=== PATIENT | male | born 1990 | race African-American/Black ===

== ENCOUNTER 2017-04-01 09:32 | Inpatient (IN) | payer BC, OTHER ==
[2017-04-01] MEDS ORDERED: SODIUM CHLORIDE 0.9% 1,000 ML IV STA (10:13)
[2017-04-01] MEDS ORDERED: HYDROmorphone 1 MG/ML 1 ML SYRINGE IVP STA ×2 (10:13→14:01)
[2017-04-01] MEDS ORDERED: RX INFO: IV CONTRAST WAS GIVEN 1 EACH MISC MISCELLANE PRN (10:13)
[2017-04-01] MEDS ORDERED: ONDANSETRON 4 MG/2 ML VIAL IVP STA ×2 (10:13→14:01)
[2017-04-01] MEDS ORDERED: SODIUM CHLORIDE 0.9% 2,000 ML IV STA (10:13)
[2017-04-01] MEDS ORDERED: PANTOPRAZOLE 40 MG/10 ML VIAL IVP STA (10:13)
[2017-04-01] MEDS ORDERED: MAG HYDROX/AL HYDROX/SIMETH 30 ML, HYOSCYAMINE ELIXIR 10 ML, CIMETIDINE HCL 300 MG, LID... PO STA ×4 (10:43)
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
[2017-04-01 11:43] LABS: Basophils % (A) 0 %; CH 29.6; CHCM 34.9; Eosinophils % (A) 0 %; HCT 44.8 % (39.0-53.0); HDW 2.67; HGB 15.2 gm/dL (13.0-17.5); Luc % (Auto) 1; Lymphocytes # (A) 0.9 k/uL (1.0-4.8); Lymphocytes % (A) 6 %; MCH 28.9 pg (25.0-35.0); MCHC 33.9 g/dL (31.0-37.0); MCV 85.2 fL (80.0-100.0); Mean Platelet Volume 8.6; Monocytes # (A) 0.6 k/uL (0-1.0); Monocytes % (A) 4 %; Neutrophils # (A) 13.7 k/uL (1.3-7.7); Neutrophils % (A) 90 %; RBC 5.26 m/uL (4.30-5.90); RDW 12.4 % (11.5-15.5); WBC 15.4 k/uL (3.8-10.6); WBC (Perox) 14.73
[2017-04-01 11:59] LABS: Calcium 9.6 mg/dL (8.4-10.2); Potassium 5.5 mmol/L (3.5-5.1); Total Bilirubin 2.3 mg/dL (0.2-1.3); Total Protein 8.6 g/dL (6.3-8.2)
[2017-04-01] MEDS ORDERED: INSULIN REGULAR 100 UNIT/ML VIAL SQ STA (12:22)
[2017-04-01] MEDS ORDERED: SODIUM CHLORIDE 0.9% 1,000 ML IV ONE (12:22)
[2017-04-01 12:48] LABS: INR 1.1 (<1.1); Partial Thromboplastin Time 23.6 sec (22.0-30.0); Prothrombin Time 10.7 sec (9.0-12.0)
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
[2017-04-01 14:05] LABS: Appearance,Urine Cloudy (Clear); Bilirubin,Urine Negative (Negative); Glucose,Urine (UA) 4+ (Negative); Ketones,Urine 1+ (Negative); Leukocyte Esterase,Urine Negative (Negative); Mucus,Urine Rare /hpf; Nitrite,Urine Negative (Negative); PH, Urine 5.5 (5.0-8.0); Particle Count 1862; Protein,Urine 1+ (Negative); RBC,Urine 14 /hpf (0-5); Specific Gravity,Urine 1.007 (1.001-1.035); Sperm,Urine Many /hpf; Squamous Epithelial Cell,Urine 1 /hpf (0-4); UA Billing (MACRO vs. MICRO) MICRO; Urobilinogen,Urine <2.0 mg/dL (<2.0); WBC,Urine 2 /hpf (0-5)
[2017-04-01 14:18] LABS: Glucose,Whole Blood 477 mg/dL (75-99)
[2017-04-01] MEDS ORDERED: INSULIN REGULAR 100 UNIT in SODIUM CHLORIDE 0.9% 100 ML IV ONE (14:32)
[2017-04-01] MEDS: SODIUM CHLORIDE 0.9% 1,000 ML IV SCH ×2 (15:44→23:50)
[2017-04-01] MEDS: METOCLOPRAMIDE 5 MG/ML 2 ML VIAL IVP PRN (15:46)
[2017-04-01 15:48] LABS: Glucose,Whole Blood 381 mg/dL (75-99)
[2017-04-01 16:26] LABS: Phosphorous 6.3 mg/dL (2.5-4.5); Potassium 4.8 mmol/L (3.5-5.1)
[2017-04-01 16:52] LABS: Glucose,Whole Blood 298 mg/dL (75-99)
[2017-04-01] MEDS ORDERED: D5-0.45% NACL WITH KCL 20MEQ/L 1,000 ML IV SCH (18:00)
[2017-04-01 18:15] LABS: Glucose,Whole Blood 267 mg/dL (75-99)
[2017-04-01 20:16] LABS: Glucose,Whole Blood 102 mg/dL (75-99)
[2017-04-01] MEDS: HYDROmorphone 1 MG/ML 1 ML SYRINGE IVP PRN (20:46)
[2017-04-01] MEDS: ONDANSETRON 4 MG/2 ML VIAL IVP SCH ×2 (20:47→20:48)
[2017-04-01 20:48] LABS: Phosphorous 4.2 mg/dL (2.5-4.5)
[2017-04-01 21:30] LABS: Glucose,Whole Blood 84 mg/dL (75-99)
[2017-04-01 22:46] LABS: Glucose,Whole Blood 221 mg/dL (75-99)
[2017-04-01] MEDS ORDERED: INSULIN GLARGINE 100 UNIT/ML 10 ML VIAL SQ STA (23:36)
[2017-04-01 23:46] LABS: Glucose,Whole Blood 364 mg/dL (75-99)
[2017-04-02] MEDS: ONDANSETRON 4 MG/2 ML VIAL IVP SCH ×7 (00:25→20:53)
[2017-04-02] MEDS: METOCLOPRAMIDE 5 MG/ML 2 ML VIAL IVP PRN ×2 (01:47→08:57)
[2017-04-02 02:21] LABS: Glucose,Whole Blood 379 mg/dL (75-99)
[2017-04-02] MEDS: SODIUM CHLORIDE 0.9% 1,000 ML IV SCH ×6 (03:24→17:36)
[2017-04-02] MEDS: HYDROmorphone 1 MG/ML 1 ML SYRINGE IVP PRN ×2 (05:04→08:57)
[2017-04-02 05:59] LABS: Glucose,Whole Blood 374 mg/dL (75-99)
[2017-04-02] MEDS: INSULIN LISPRO (humaLOG) 300 UNIT/3 ML VIAL SQ SCH ×8 (06:45→20:54)
[2017-04-02 08:11] LABS: Basophils % (A) 0 %; CH 29.4; CHCM 33.1; Eosinophils % (A) 0 %; HCT 40.5 % (39.0-53.0); HDW 2.54; Luc # (Auto) 0.07; Luc % (Auto) 1; Lymphocytes % (A) 7 %; MCH 28.7 pg (25.0-35.0); MCHC 32.2 g/dL (31.0-37.0); Mean Platelet Volume 8.8; Monocytes # (A) 0.6 k/uL (0-1.0); Monocytes % (A) 4 %; Neutrophils # (A) 11.9 k/uL (1.3-7.7); Neutrophils % (A) 88 %; RBC 4.55 m/uL (4.30-5.90); RDW 12.5 % (11.5-15.5); WBC 13.5 k/uL (3.8-10.6)
[2017-04-02 08:29] LABS: Calcium 8.3 mg/dL (8.4-10.2); Potassium 4.2 mmol/L (3.5-5.1); Total Bilirubin 1.6 mg/dL (0.2-1.3); Total Protein 6.4 g/dL (6.3-8.2)
[2017-04-02 08:45] LABS: Glucose,Whole Blood 305 mg/dL (75-99)
[2017-04-02] MEDS: PANTOPRAZOLE 40 MG/10 ML VIAL IVP SCH ×2 (10:20→21:05)
[2017-04-02] MEDS: ACETAMINOPHEN IV (For NPO) 1,000 MG in EMPTY BAG 1 BAG IVPB PRN ×2 (10:20→18:53)
[2017-04-02 11:20] LABS: Glucose,Whole Blood 197 mg/dL (75-99)
[2017-04-02 12:13] VITALS: BMI 20.7
[2017-04-02 12:38] LABS: Hemoglobin A1C 11.3 % (4.2-6.1)
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
--- NOTE | 2017-04-02 16:28 | PN ---
DATE OF SERVICE: 04/02/2017 CHIEF COMPLAINT: Uncontrolled diabetes. HISTORY OF PRESENT ILLNESS: This gentleman is having continuous nausea and vomiting. BUN and creatinine have gone up and they were normal last year. PHYSICAL EXAMINATION: CHEST: Clear. CARDIAC: Normal. ABDOMEN: Soft and nontender. IMPRESSION: 1. Nausea and vomiting. 2. Dehydration. 3. Prerenal azotemia. 4. Uncontrolled diabetes. PLAN: 1. Continue with IV fluids. 2. Anti-emetics. 3. Follow kidney function closely. 4. Increase insulin until sugars are under control.
[2017-04-02 17:44] LABS: Glucose,Whole Blood 266 mg/dL (75-99)
[2017-04-02 20:35] LABS: Glucose,Whole Blood 202 mg/dL (75-99)
[2017-04-02 22:23] LABS: Glucose,Whole Blood 78 mg/dL (75-99)
[2017-04-03] MEDS: SODIUM CHLORIDE 0.9% 1,000 ML IV SCH ×4 (03:11→21:35)
[2017-04-03] MEDS: ONDANSETRON 4 MG/2 ML VIAL IVP SCH ×5 (03:11→18:12)
[2017-04-03 07:46] LABS: Glucose,Whole Blood 298 mg/dL (75-99)
[2017-04-03] MEDS: INSULIN LISPRO (humaLOG) 300 UNIT/3 ML VIAL SQ SCH ×10 (08:04→21:05)
[2017-04-03] MEDS: PANTOPRAZOLE 40 MG/10 ML VIAL IVP SCH ×2 (08:04→21:04)
[2017-04-03 08:34] LABS: ALT 46 U/L (21-72); AST 59 U/L (17-59); Alkaline Phosphatase 72 U/L (38-126); Anion Gap 11 mmol/L; Blood Urea Nitrogen 22 mg/dL (9-20); Calcium 8.4 mg/dL (8.4-10.2); Carbon Dioxide 20 mmol/L (22-30); Chloride 104 mmol/L (98-107); Glucose 315 mg/dL (74-99); Non-African American GFR(MDRD) 52 (>60 ml/min/1.73 sqM); Potassium 5.1 mmol/L (3.5-5.1); Sodium 135 mmol/L (137-145); Total Bilirubin 1.7 mg/dL (0.2-1.3); Total Protein 6.5 g/dL (6.3-8.2)
[2017-04-03] MEDS ORDERED: ACETAMINOPHEN IV (For NPO) 1,000 MG in EMPTY BAG 1 BAG IVPB ONE (09:00)
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
[2017-04-03] MEDS ORDERED: SCOPOLAMINE 1.5MG/72HR PATCH TRANSDERM SCH (09:30)
[2017-04-03 09:43] LABS: Cholesterol 175 mg/dL (<200); HDL Cholesterol 57 mg/dL (40-60); Triglycerides 92 mg/dL (<150)
[2017-04-03 11:29] LABS: Glucose,Whole Blood 159 mg/dL (75-99)
--- NOTE | 2017-04-03 17:28 | PN ---
DATE OF SERVICE: 04/03/2017 CHIEF COMPLAINT: DKA and uncontrolled diabetes. HISTORY OF PRESENT ILLNESS: This gentleman would be doing fairly well and could go home, except that he is having vomiting. He has had no diarrhea, hematemesis, fever, chills, etc. PHYSICAL EXAMINATION: CHEST: Clear. CARDIAC: Normal. He is in sinus rhythm. ABDOMEN: Flat and slightly tender over the epigastrium. Bowel sounds are present. EXTREMITIES: Normal. IMPRESSION: 1. Uncontrolled diabetes with diabetic ketoacidosis. 2. Epigastric pain and vomiting. PLAN: Continue to look for etiology of his pain and vomiting. In the meantime, repeat labs.
[2017-04-03 17:40] LABS: Glucose,Whole Blood 198 mg/dL (75-99)
[2017-04-03] MEDS: ACETAMINOPHEN TAB 500 MG TAB PO PRN (18:17)
[2017-04-03] MEDS: LISINOPRIL 20 MG TAB PO SCH (18:43)
[2017-04-03 21:01] LABS: Glucose,Whole Blood 141 mg/dL (75-99)
[2017-04-04] MEDS: ONDANSETRON 4 MG/2 ML VIAL IVP SCH ×4 (00:17→10:42)
[2017-04-04 01:14] LABS: Glucose,Whole Blood 215 mg/dL (75-99)
[2017-04-04] MEDS: SODIUM CHLORIDE 0.9% 1,000 ML IV SCH ×2 (05:00→10:42)
[2017-04-04 07:08] LABS: Glucose,Whole Blood 277 mg/dL (75-99)
[2017-04-04] MEDS: PANTOPRAZOLE 40 MG/10 ML VIAL IVP SCH (08:10)
[2017-04-04] MEDS: LISINOPRIL 20 MG TAB PO SCH (08:11)
[2017-04-04] MEDS: INSULIN LISPRO (humaLOG) 300 UNIT/3 ML VIAL SQ SCH ×4 (08:11→13:09)
[2017-04-04 08:12] VITALS: BP 188/102; PULSE 81; RESP 18; TEMP 97.6
[2017-04-04 09:09] LABS: ALT 41 U/L (21-72); AST 29 U/L (17-59); Alkaline Phosphatase 75 U/L (38-126); Anion Gap 11 mmol/L; Blood Urea Nitrogen 13 mg/dL (9-20); Calcium 8.6 mg/dL (8.4-10.2); Carbon Dioxide 22 mmol/L (22-30); Chloride 100 mmol/L (98-107); Glucose 246 mg/dL (74-99); Non-African American GFR(MDRD) >60 (>60 ml/min/1.73 sqM); Potassium 4.5 mmol/L (3.5-5.1); Sodium 133 mmol/L (137-145); Total Protein 6.5 g/dL (6.3-8.2)
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
[2017-04-04] MEDS: ACETAMINOPHEN TAB 500 MG TAB PO PRN (11:12)
[2017-04-04 11:25] LABS: Glucose,Whole Blood 259 mg/dL (75-99)
--- NOTE | 2017-04-04 12:09 | PN ---
DATE OF SERVICE: 04/04/2017 CHIEF COMPLAINT: DKA and contusions and abrasions. HISTORY OF PRESENT ILLNESS: This gentleman is doing a little bit better. He is not having abdominal discomfort. He is occasionally throwing up, but this is slowing down. This could be due to a diabetic gastroenteropathy. Blood sugars are improved and he is doing well and he will probably go home today. PHYSICAL EXAM: His chest is clear. Cardiac exam is normal. The abdomen is flat, soft, nontender and no masses or visceromegaly. Bowel sounds present. IMPRESSION: 1. Uncontrolled diabetes mellitus. 2. Multiple contusions and abrasions. 3. Dehydration. 4. Possible diabetic gastroenteropathy. PLAN: Will try to send him home today and will follow him up in the office in a day or two. He will be contacted by the complex career consultant.
--- NOTE | 2017-04-05 16:59 | DS ---
DATE OF ADMISSION: 04/01/2017 DATE OF DISCHARGE: 04/04/2017 CHIEF COMPLAINT: Contusions and abrasions and uncontrolled diabetes. HISTORY OF PRESENT ILLNESS AND PHYSICAL EXAMINATION: The details of this man's history and physical can be found in the initial workup. LABORATORY STUDIES: While he was in hospital he had laboratory studies, details of which can be found in the laboratory section of his chart. COURSE IN THE HOSPITAL: After admission he was placed on bed rest, started on intravenous fluids and insulin drip. His sugars were brought down. He stabilized and was doing well, and then he started to develop epigastric pain and vomiting. Etiology for this was not clear. This slowly did begin to subside, however, and his diet was advanced and sugars were brought under reasonably good control. It was felt that he could go home on April 04, and he will follow up in the office in a few days. FINAL DIAGNOSES: 1. Multiple contusions and abrasions. 2. Uncontrolled type 1 insulin-dependent diabetes mellitus. 3. Abdominal pain and vomiting, possibly due to diabetic enteropathy. OPERATIONS: None. CONSULTATIONS: None. He is improved.
== END 2017-04-04 13:56 | disposition home or self-care (01) | DRG 638 ==
LOC: EC 09:32 → 6SEL 14:36 → 5MS5E 04-02 16:53
PROVIDERS: ADMIT Family Medicine; ATTEND Family Medicine
DX: E10.10 Type 1 diabetes mellitus with ketoacidosis without coma (principal); N17.9 Acute kidney failure, unspecified; E87.5 Hyperkalemia; I10 Essential (primary) hypertension; E86.0 Dehydration; D72.829 Elevated white blood cell count, unspecified; F17.200 Nicotine dependence, unspecified, uncomplicated; G43.909 Migraine, unspecified, not intractable, without status migrainosus; J45.909 Unspecified asthma, uncomplicated; Z79.4 Long term (current) use of insulin; Z88.5 Allergy status to narcotic agent
CPT/HCPCS: 36415; 70450; 72125; 74176; 80051; 80053; 80061; 81001; 82009; 82150; 82565; 82947; 83036; 83605; 83690; 84100; 84520; 85025; 85610; 85730; 86850; 86900; 86901

== ENCOUNTER 2017-05-03 12:07 | Emergency (ER) | payer BC ==
[2017-05-03 12:17] VITALS: BP 113/66; PULSE 102; RESP 20; TEMP 98.4
--- NOTE | 2017-05-03 12:30 | ED ---
Extremity Problem HPI - General Chief complaint: Extremity Problem,Nontraumatic Stated complaint: Bump On Arm Time Seen by Provider: 05/03/17 12:18 Source: patient, RN notes reviewed Mode of arrival: ambulatory Limitations: no limitations - History of Present Illness Initial comments: 26-year-old male presents to the emergency department with chief complaint of bump to the right on right forearm a couple of hours ago. Patient states he did have an IV that arm a few weeks ago. Patient states it is not tender but it was right over her vein so he was concerned. Patient states no history of this history of blood clots no history of blood disorders. Patient states there is no pain. Patient states she was concerned due to his symptoms were thought that he should be evaluated.Patient denies any recent fever, chills, shortness of breath, chest pain, back pain, abdominal pain, nausea vomiting, numbness or tingling, dysuria or hematuria, constipation or diarrhea, headaches or visual changes, or any other current symptoms. - Related Data Previous Rx's Medication Instructions Recorded Atorvastatin Calcium [Lipitor] 20 mg PO DAILY #30 tab 04/04/17 Insulin NPH Hum/Reg Insulin Hm 35 unit SQ BID #1 pen 04/04/17 [humuLIN 70/30 Kwikpen] Insulin NPH/Reg Insulin 70/30 35 unit SQ BID #1 04/04/17 [humuLIN 70/30 VIAL] Lisinopril 40 mg PO DAILY #30 tab 04/04/17 Allergies Allergy/AdvReac Type Severity Reaction Status Date / Time codeine Allergy Swelling Verified 05/03/17 12:17 Review of Systems ROS Statement: Those systems with pertinent positive or pertinent negative responses have been documented in the HPI. ROS Other: All systems not noted in ROS Statement are negative. Past Medical History Past Medical History: Asthma, Diabetes Mellitus, Pneumonia Additional Past Medical History / Comment(s): bronchitis, "constipation- received botox injections to help with that", migraines, concussions History of Any Multi-Drug Resistant Organisms: None Reported Past Surgical History: No Surgical Hx Reported Additional Past Surgical History / Comment(s): tooth extractions Past Anesthesia/Blood Transfusion Reactions: Motion Sickness Additional Past Anesthesia/Blood Transfusion Reaction / Comment(s): mild clausterphobia Past Psychological History: No Psychological Hx Reported Smoking Status: Current every day smoker Past Alcohol Use History: Rare Past Drug Use History: Marijuana - Past Family History Mother Family Medical History: Cancer, Chest Pain / Angina Additional Family Medical History / Comment(s): CERVICAL CANCER Father Family Medical History: Cancer Additional Family Medical History / Comment(s): - LUNG CANCER, WAS HEAVY SMOKER. General Exam - General Exam Comments Initial Comments: General: The patient is awake and alert, in no distress, and does not appear acutely ill. Neck: The neck is supple, there is no tenderness. Cardiovascular: There is a regular rate and rhythm. No murmur, rub or gallop is appreciated. Respiratory: Lungs are clear to auscultation, respirations are non-labored, breath sounds are equal. No wheezes, stridor, rales, or rhonchi. Musculoskeletal: Sensation intact with 2+ pulses. Pressure over the frontal motion of right elbow and right wrist. Patient does appear to have a small nodule-like area over the pain that does appear to be superficial blood clot. Nontender mobile. It is palpable. Neurological: CN II-XII intact, There are no obvious motor or sensory deficits. Coordination appears grossly intact. Speech is normal. Skin: Skin is warm and dry and no rashes or lesions are noted. Psychiatric: Normal mood and affect. Limitations: no limitations Course Vital Signs 05/03/17 12:15 Temperature 98.4 F Pulse Rate 102 H Respiratory 20 Rate Blood Pressure 113/66 O2 Sat by Pulse 100 Oximetry Medical Decision Making - Medical Decision Making 26-year-old male presents for what appears to be superficial blood clot to the right forearm. discussed warm compresses. We discussed follow-up return parameters all patient's questions. We discussed return parameters other concerns. He stated that they understood. in agreement with Plan. He will be discharged. - Radiology Data Radiology results: report reviewed, image reviewed Disposition Clinical Impression: Superficial thrombophlebitis of arm Disposition: HOME SELF-CARE Condition: Stable Instructions: Superficial Thrombophlebitis (ED) Additional Instructions: Please use medication as discussed. Please follow up with family doctor if symptoms have not improved over the next two days. Please return to the emergency room if your symptoms increase or worsen or for any other concerns. Referrals: Jose Mejia MD [Primary Care Provider] - 1-2 days Time of Disposition: 13:18
--- NOTE | 2017-05-03 14:04 | US ---
EXAMINATION TYPE: US extremity nonvasc mass RT DATE OF EXAM: 05/03/2017 COMPARISON: NONE CLINICAL HISTORY: Pain; EC patient with small palpable noted today at anterior right forearm and c/o mild numbness of wrist; stated had IV distal to this same location 3 weeks prior At right forearm palpable is hypoechoic elongated area of superficial vein; size of noncompressible p alpable = 1.7 x 0.5 x 0.3cm, yet, vein compresses superior and inferior to this palpable. IMPRESSION: 1. Nonspecific hypoechoic nodule or mass overlies the palpable abnormality. Appears to be related to a focal segment of superficial venous thrombosis..
== END 2017-05-03 13:23 | disposition home or self-care (01) ==
LOC: EC 12:07
DX: I80.8 Phlebitis and thrombophlebitis of other sites (principal); F17.200 Nicotine dependence, unspecified, uncomplicated; Z88.5 Allergy status to narcotic agent
CPT/HCPCS: 99283

== ENCOUNTER 2018-08-08 06:37 | Emergency (ER) | payer BC, OTHER ==
[2018-08-08 06:47] VITALS: BP 147/85; PULSE 109; RESP 19; TEMP 97
[2018-08-08 06:49] LABS: Glucose,Whole Blood 85 mg/dL (75-99)
--- NOTE | 2018-08-08 07:24 | ED ---
General Adult HPI - General Chief complaint: Recheck/Abnormal Lab/Rx Stated complaint: Hypoglycemia Time Seen by Provider: 08/08/18 07:01 Source: patient, RN notes reviewed, old records reviewed Mode of arrival: EMS Limitations: no limitations - History of Present Illness Initial comments: 27-year-old male presenting with episode of confusion and altered mental status. Patient was found by EMS, blood sugar 57. He was given oral glucose and mentation improved. According to his girlfriend he was difficult to arouse , he has shaking tremoring her speech. Patient denies any change in his insulin dosing. He states he did eat dinner as usual last night. He does admit to drinking some alcohol yesterday evening. He has no complaints time my evaluation. He has been given oral glucose and eaten a sandwich in the emergency department. - Related Data Previous Rx's Medication Instructions Recorded Atorvastatin Calcium [Lipitor] 20 mg PO DAILY #30 tab 04/04/17 Insulin NPH Hum/Reg Insulin Hm 35 unit SQ BID #1 pen 04/04/17 [humuLIN 70/30 Kwikpen] Insulin NPH/Reg Insulin 70/30 35 unit SQ BID #1 04/04/17 [humuLIN 70/30 VIAL] Lisinopril 40 mg PO DAILY #30 tab 04/04/17 Allergies Allergy/AdvReac Type Severity Reaction Status Date / Time codeine Allergy Swelling Verified 08/08/18 06:47 Review of Systems ROS Statement: Those systems with pertinent positive or pertinent negative responses have been documented in the HPI. ROS Other: All systems not noted in ROS Statement are negative. Past Medical History Past Medical History: Asthma, Diabetes Mellitus, Pneumonia Additional Past Medical History / Comment(s): bronchitis, "constipation- received botox injections to help with that", migraines, concussions History of Any Multi-Drug Resistant Organisms: None Reported Past Surgical History: No Surgical Hx Reported Additional Past Surgical History / Comment(s): tooth extractions Past Anesthesia/Blood Transfusion Reactions: Motion Sickness Additional Past Anesthesia/Blood Transfusion Reaction / Comment(s): mild clausterphobia Past Psychological History: No Psychological Hx Reported Smoking Status: Current every day smoker Past Alcohol Use History: Rare Past Drug Use History: Marijuana - Past Family History Mother Family Medical History: Cancer, Chest Pain / Angina Additional Family Medical History / Comment(s): CERVICAL CANCER Father Family Medical History: Cancer Additional Family Medical History / Comment(s): - LUNG CANCER, WAS HEAVY SMOKER. General Exam Limitations: no limitations General appearance: alert, in no apparent distress Head exam: Present: atraumatic, normocephalic Eye exam: Present: normal appearance, PERRL ENT exam: Present: normal exam, mucous membranes moist Neck exam: Present: normal inspection. Absent: tenderness, meningismus Respiratory exam: Present: normal lung sounds bilaterally. Absent: respiratory distress, wheezes Cardiovascular Exam: Present: regular rate, normal rhythm GI/Abdominal exam: Present: soft. Absent: distended, tenderness, guarding Extremities exam: Present: normal inspection, normal capillary refill. Absent: pedal edema Neurological exam: Present: alert, oriented X3, CN II-XII intact. Absent: motor sensory deficit Psychiatric exam: Present: normal affect, normal mood Skin exam: Present: warm, dry, intact. Absent: cyanosis, diaphoretic Course Vital Signs 08/08/18 06:43 Temperature 97.0 F L Pulse Rate 109 H Respiratory 19 Rate Blood Pressure 147/85 O2 Sat by Pulse 100 Oximetry Medical Decision Making - Medical Decision Making 27-year-old male presenting with episode of hypoglycemia. Patient had altered level of consciousness, was found by EMS to have a low blood sugar given oral glucose and return to baseline. He was alert and oriented at the time my evaluation, no complaints. He has eaten a sandwich as well as full breakfast in the emergency department. Laboratory studies are obtained including CBC and CMP which are within normal limits. Glucose is trended and is stable. Patient will be discharged with outpatient follow-up. Close outpatient glucose monitoring. - Lab Data Result diagrams: 08/08/18 07:15 08/08/18 07:15 Lab Results 08/08/18 08/08/18 08/08/18 Range/Units 06:46 07:15 07:15 WBC 10.6 (3.8-10.6) k/uL RBC 4.78 (4.30-5.90) m/uL Hgb 13.9 (13.0-17.5) gm/dL Hct 42.1 (39.0-53.0) % MCV 87.9 (80.0-100.0) fL MCH 29.1 (25.0-35.0) pg MCHC 33.1 (31.0-37.0) g/dL RDW 12.5 (11.5-15.5) % Plt Count 212 (150-450) k/uL Neutrophils % 84 % Lymphocytes % 12 % Monocytes % 2 % Eosinophils % 0 % Basophils % 1 % Neutrophils # 8.9 H (1.3-7.7) k/uL Lymphocytes # 1.3 (1.0-4.8) k/uL Monocytes # 0.3 (0-1.0) k/uL Eosinophils # 0.0 (0-0.7) k/uL Basophils # 0.1 (0-0.2) k/uL Sodium 142 (137-145) mmol/L Potassium 4.4 (3.5-5.1) mmol/L Chloride 104 (98-107) mmol/L Carbon Dioxide 28 (22-30) mmol/L Anion Gap 10 mmol/L BUN 20 (9-20) mg/dL Creatinine 0.87 (0.66-1.25) mg/dL Est GFR (CKD-EPI)AfAm >90 (>60 ml/min/1.73 sqM) Est GFR (CKD-EPI)NonAf >90 (>60 ml/min/1.73 sqM) Glucose 140 H (74-99) mg/dL POC Glucose (mg/dL) 85 (75-99) mg/dL POC Glu Electrical Installer ID Arft, Keshav Calcium 9.7 (8.4-10.2) mg/dL Total Bilirubin 0.6 (0.2-1.3) mg/dL AST 35 (17-59) U/L ALT 15 L (21-72) U/L Alkaline Phosphatase 49 (38-126) U/L Total Protein 7.1 (6.3-8.2) g/dL Albumin 4.1 (3.5-5.0) g/dL Serum Alcohol <10 mg/dL 08/08/18 Range/Units 07:31 WBC (3.8-10.6) k/uL RBC (4.30-5.90) m/uL Hgb (13.0-17.5) gm/dL Hct (39.0-53.0) % MCV (80.0-100.0) fL MCH (25.0-35.0) pg MCHC (31.0-37.0) g/dL RDW (11.5-15.5) % Plt Count (150-450) k/uL Neutrophils % % Lymphocytes % % Monocytes % % Eosinophils % % Basophils % % Neutrophils # (1.3-7.7) k/uL Lymphocytes # (1.0-4.8) k/uL Monocytes # (0-1.0) k/uL Eosinophils # (0-0.7) k/uL Basophils # (0-0.2) k/uL Sodium (137-145) mmol/L Potassium (3.5-5.1) mmol/L Chloride (98-107) mmol/L Carbon Dioxide (22-30) mmol/L Anion Gap mmol/L BUN (9-20) mg/dL Creatinine (0.66-1.25) mg/dL Est GFR (CKD-EPI)AfAm (>60 ml/min/1.73 sqM) Est GFR (CKD-EPI)NonAf (>60 ml/min/1.73 sqM) Glucose (74-99) mg/dL POC Glucose (mg/dL) 154 H (75-99) mg/dL POC Glu Electrical Installer ID Georgina Lu Calcium (8.4-10.2) mg/dL Total Bilirubin (0.2-1.3) mg/dL AST (17-59) U/L ALT (21-72) U/L Alkaline Phosphatase (38-126) U/L Total Protein (6.3-8.2) g/dL Albumin (3.5-5.0) g/dL Serum Alcohol mg/dL Disposition Clinical Impression: Hypoglycemia Disposition: HOME SELF-CARE Condition: Good Is patient prescribed a controlled substance at d/c from ED?: No Referrals: None,Stated [Primary Care Provider] - 1-2 days Jose Mejia MD [STAFF PHYSICIAN] - 1-2 days Time of Disposition: 08:11
[2018-08-08 07:41] LABS: Glucose,Whole Blood 154 mg/dL (75-99)
[2018-08-08 07:54] LABS: Basophils # (A) 0.1 k/uL (0-0.2); Basophils % (A) 1 %; Eosinophils % (A) 0 %; HCT 42.1 % (39.0-53.0); HGB 13.9 gm/dL (13.0-17.5); Lymphocytes # (A) 1.3 k/uL (1.0-4.8); Lymphocytes % (A) 12 %; MCH 29.1 pg (25.0-35.0); MCHC 33.1 g/dL (31.0-37.0); MCV 87.9 fL (80.0-100.0); Mean Platelet Volume 8.2; Monocytes # (A) 0.3 k/uL (0-1.0); Monocytes % (A) 2 %; Neutrophils # (A) 8.9 k/uL (1.3-7.7); Neutrophils % (A) 84 %; Platelet Count 212 k/uL (150-450); RBC 4.78 m/uL (4.30-5.90); RDW 12.5 % (11.5-15.5); WBC 10.6 k/uL (3.8-10.6)
[2018-08-08 08:03] LABS: ALT 15 U/L (21-72); AST 35 U/L (17-59); Albumin 4.1 g/dL (3.5-5.0); Alcohol <10 mg/dL; Alkaline Phosphatase 49 U/L (38-126); Anion Gap 10 mmol/L; Blood Urea Nitrogen 20 mg/dL (9-20); Calcium 9.7 mg/dL (8.4-10.2); Carbon Dioxide 28 mmol/L (22-30); Chloride 104 mmol/L (98-107); Glucose 140 mg/dL (74-99); Potassium 4.4 mmol/L (3.5-5.1); Sodium 142 mmol/L (137-145); Total Bilirubin 0.6 mg/dL (0.2-1.3); Total Protein 7.1 g/dL (6.3-8.2)
[2018-08-08 08:45] LABS: Glucose,Whole Blood 218 mg/dL (75-99)
== END 2018-08-08 09:05 | disposition home or self-care (01) ==
LOC: EC 06:37
DX: E11.649 Type 2 diabetes mellitus with hypoglycemia without coma (principal); F17.200 Nicotine dependence, unspecified, uncomplicated; Z88.5 Allergy status to narcotic agent
CPT/HCPCS: 36415; 80053; 80320; 85025; 99285

== ENCOUNTER 2020-11-15 15:30 | Inpatient (IN) | payer OTHER ==
[2020-11-15] MEDS ORDERED: SODIUM CHLORIDE 0.9% 2,000 ML IV ONE (16:08)
[2020-11-15 16:34] LABS: Basophils # (A) 0.1 k/uL (0-0.2); Basophils % (A) 1 %; Eosinophils # (A) 0.1 k/uL (0-0.7); Eosinophils % (A) 1 %; HCT 47.3 % (39.0-53.0); HGB 16.1 gm/dL (13.0-17.5); Lymphocytes # (A) 1.2 k/uL (1.0-4.8); Lymphocytes % (A) 11 %; MCHC 34.1 g/dL (31.0-37.0); Mean Platelet Volume 8.3; Monocytes # (A) 0.4 k/uL (0-1.0); Monocytes % (A) 4 %; Neutrophils # (A) 9.3 k/uL (1.3-7.7); Neutrophils % (A) 84 %; Platelet Count 210 k/uL (150-450); RBC 5.56 m/uL (4.30-5.90); RDW 12.5 % (11.5-15.5); WBC 11.1 k/uL (3.8-10.6)
[2020-11-15] MEDS ORDERED: FAMOTIDINE 20 MG/2 ML VIAL IV STA (16:35)
[2020-11-15] MEDS ORDERED: ONDANSETRON 4 MG/2 ML VIAL IVP STA (16:36)
[2020-11-15 16:40] LABS: Appearance,Urine Clear (Clear); Bilirubin,Urine Negative (Negative); Blood,Urine Small (Negative); Color,Urine Light Yellow; Glucose,Urine (UA) 4+ (Negative); Hyaline Casts,Urine 1 /lpf (0-2); Ketones,Urine 1+ (Negative); Leukocyte Esterase,Urine Negative (Negative); Nitrite,Urine Negative (Negative); PH, Urine 5.5 (5.0-8.0); Protein,Urine 1+ (Negative); RBC,Urine 3 /hpf (0-5); Specific Gravity,Urine 1.028 (1.001-1.035); Urobilinogen,Urine <2.0 mg/dL (<2.0); WBC,Urine 1 /hpf (0-5)
[2020-11-15 16:43] LABS: ALT 61 U/L (4-49); AST 35 U/L (17-59); African American GFR (CKD) >90 (>60 ml/min/1.73 sqM); Albumin 4.7 g/dL (3.5-5.0); Alkaline Phosphatase 91 U/L (38-126); Anion Gap 10 mmol/L; Blood Urea Nitrogen 52 mg/dL (9-20); Calcium 10.2 mg/dL (8.4-10.2); Carbon Dioxide 30 mmol/L (22-30); Chloride 83 mmol/L (98-107); Non-African American GFR(CKD) 82 (>60 ml/min/1.73 sqM); Potassium 4.9 mmol/L (3.5-5.1); Sodium 123 mmol/L (137-145); Total Bilirubin 1.9 mg/dL (0.2-1.3); Total Protein 8.4 g/dL (6.3-8.2)
[2020-11-15 17:05] LABS: Glucose 535 mg/dL (74-99)
[2020-11-15] MEDS ORDERED: ACETAMINOPHEN TAB 325 MG TAB PO STA (17:24)
[2020-11-15] MEDS ORDERED: INSULIN REGULAR 100 UNIT/ML VIAL SQ ONE (18:18)
--- NOTE | 2020-11-15 18:35 | ED ---
General Adult HPI - General Chief complaint: Recheck/Abnormal Lab/Rx Stated complaint: Diabetic - Dizzy Time Seen by Provider: 11/15/20 15:55 Source: patient Mode of arrival: wheelchair Limitations: no limitations - History of Present Illness Initial comments: Patient is a 29-year-old male with past medical history of diabetes who presents to the emergency department with hyperglycemia. He reports that he just moved back to the area and has been out of his insulin for the past 6 days. Patient has had nausea, vomiting with hematemesis. Reports to history of similar in the past and he was in DKA. Patient has unable to hold down any food. Does admit to generalized abdominal pain. He denies chest pain, shortness of breath or cough. No changes in his bowel or bladder habits. Denies a history of peptic ulcer disease. No fevers or chills. Denies any headaches or visual changes. No other alleviating, precipitating or modifying factors - Related Data Home Medications Medication Instructions Recorded Confirmed INSULIN ASPART (NovoLOG) [NovoLOG See Protocol SQ TID-W/MEALS 11/15/20 11/15/20 (formulary)] Previous Rx's Medication Instructions Recorded Insulin NPH/Reg Insulin 70/30 35 unit SQ BID 30 Days #1 vial 11/18/20 [humuLIN 70/30 VIAL] Pantoprazole [Protonix] 40 mg PO AC-[id number] #30 tablet. 11/18/20 Allergies Allergy/AdvReac Type Severity Reaction Status Date / Time codeine Allergy Swelling Verified 11/15/20 16:00 Review of Systems ROS Statement: Those systems with pertinent positive or pertinent negative responses have been documented in the HPI. ROS Other: All systems not noted in ROS Statement are negative. Past Medical History Past Medical History: Asthma, Diabetes Mellitus, Pneumonia Additional Past Medical History / Comment(s): bronchitis, "constipation-received botox injections to help with that", migraines, concussions History of Any Multi-Drug Resistant Organisms: None Reported Past Surgical History: No Surgical Hx Reported Additional Past Surgical History / Comment(s): tooth extractions Past Anesthesia/Blood Transfusion Reactions: Motion Sickness Additional Past Anesthesia/Blood Transfusion Reaction / Comment(s): mild clausterphobia Past Psychological History: No Psychological Hx Reported Smoking Status: Never smoker Past Alcohol Use History: Rare Past Drug Use History: None Reported, Marijuana - Past Family History Mother Family Medical History: Cancer, Chest Pain / Angina Additional Family Medical History / Comment(s): CERVICAL CANCER Father Family Medical History: Cancer Additional Family Medical History / Comment(s): - LUNG CANCER, WAS HEAVY SMOKER. General Exam Limitations: no limitations General appearance: alert, in no apparent distress Head exam: Present: atraumatic, normocephalic, normal inspection Eye exam: Present: normal appearance, PERRL, EOMI. Absent: scleral icterus, conjunctival injection, periorbital swelling ENT exam: Present: normal exam, mucous membranes moist Neck exam: Present: normal inspection. Absent: tenderness, meningismus, lymphadenopathy Respiratory exam: Present: normal lung sounds bilaterally. Absent: respiratory distress, wheezes, rales, rhonchi, stridor Cardiovascular Exam: Present: normal rhythm, tachycardia, normal heart sounds. Absent: systolic murmur, diastolic murmur, rubs, gallop, clicks GI/Abdominal exam: Present: soft, normal bowel sounds. Absent: distended, tenderness, guarding, rebound, rigid Extremities exam: Present: normal inspection, full ROM, normal capillary refill. Absent: tenderness, pedal edema, joint swelling, calf tenderness Back exam: Present: normal inspection Neurological exam: Present: alert, oriented X3, CN II-XII intact Psychiatric exam: Present: normal affect, normal mood Skin exam: Present: warm, dry, intact, normal color. Absent: rash Course Vital Signs 11/15/20 15:57 Temperature 98.4 F Pulse Rate 114 H Respiratory 18 Rate Blood Pressure 124/85 O2 Sat by Pulse 100 Oximetry EKG Findings - EKG Comments: EKG Findings:: EKG demonstrates normal sinus rhythm with a ventricular rate of 96. SD 128. QRS 92. QTC of 437. PT wheezing V2 through V4. No acute ST segment elevations Medical Decision Making - Medical Decision Making Upon arrival patient was placed into room 17. A thorough history and physical exam was performed. Patient is hooked up to continuous pulse ox and cardiac monitoring. 12-lead EKG was performed. Peripheral IV is established and laboratory studies were conducted. Patient was given 2 L of normal saline. Laboratory studies are reviewed which demonstrated a sodium of 123 with a glucose of 535. Likely a pseudohyponatremia. Patient is acetone positive with 1+ ketones. No anion gap. Because of his hyperglycemia with positive acetone status I did recommend hospital physician for which patient did agree to. Glucose was 382 and the patient was administered 10 units of insulin. I will order the patient's home insulin as well as a sliding scale. Patient given famotidine for his reported hematemesis. Heart rate did improve. Patient was then taken to the floor in stable condition - Lab Data Result diagrams: 11/18/20 05:31 11/18/20 05:31 Lab Results 11/15/20 11/15/20 11/15/20 Range/Units 16:27 16:27 16:27 WBC 11.1 H (3.8-10.6) k/uL RBC 5.56 (4.30-5.90) m/uL Hgb 16.1 (13.0-17.5) gm/dL Hct 47.3 (39.0-53.0) % MCV 85.0 (80.0-100.0) fL MCH 29.0 (25.0-35.0) pg MCHC 34.1 (31.0-37.0) g/dL RDW 12.5 (11.5-15.5) % Plt Count 210 (150-450) k/uL MPV 8.3 Neutrophils % 84 % Lymphocytes % 11 % Monocytes % 4 % Eosinophils % 1 % Basophils % 1 % Neutrophils # 9.3 H (1.3-7.7) k/uL Lymphocytes # 1.2 (1.0-4.8) k/uL Monocytes # 0.4 (0-1.0) k/uL Eosinophils # 0.1 (0-0.7) k/uL Basophils # 0.1 (0-0.2) k/uL Sodium 123 L (137-145) mmol/L Potassium 4.9 (3.5-5.1) mmol/L Chloride 83 L (98-107) mmol/L Carbon Dioxide 30 (22-30) mmol/L Anion Gap 10 mmol/L BUN 52 H (9-20) mg/dL Creatinine 1.19 (0.66-1.25) mg/dL Est GFR (CKD-EPI)AfAm >90 (>60 ml/min/1.73 sqM) Est GFR (CKD-EPI)NonAf 82 (>60 ml/min/1.73 sqM) Glucose 535 H* (74-99) mg/dL Plasma Lactic Acid [place] (0.7-2.0) mmol/L Calcium 10.2 (8.4-10.2) mg/dL Magnesium 2.0 (1.6-2.3) mg/dL Total Bilirubin 1.9 H (0.2-1.3) mg/dL AST 35 (17-59) U/L ALT 61 H (4-49) U/L Alkaline Phosphatase 91 (38-126) U/L Total Protein 8.4 H (6.3-8.2) g/dL Albumin 4.7 (3.5-5.0) g/dL Urine Color Light Yellow Urine Appearance Clear (Clear) Urine pH 5.5 (5.0-8.0) Ur Specific [place] 1.028 (1.001-1.035) Urine Protein 1+ H (Negative) Urine Glucose (UA) 4+ H (Negative) Urine Ketones 1+ H (Negative) Urine Blood Small H (Negative) Urine Nitrite Negative (Negative) Urine Bilirubin Negative (Negative) Urine Urobilinogen <2.0 (<2.0) mg/dL Ur Leukocyte Esterase Negative (Negative) Urine RBC 3 (0-5) /hpf Urine WBC 1 (0-5) /hpf Hyaline Casts 1 (0-2) /lpf Acetone, Qual Positive (Negative) 11/15/20 Range/Units 16:27 WBC (3.8-10.6) k/uL RBC (4.30-5.90) m/uL Hgb (13.0-17.5) gm/dL Hct (39.0-53.0) % MCV (80.0-100.0) fL MCH (25.0-35.0) pg MCHC (31.0-37.0) g/dL RDW (11.5-15.5) % Plt Count (150-450) k/uL MPV Neutrophils % % Lymphocytes % % Monocytes % % Eosinophils % % Basophils % % Neutrophils # (1.3-7.7) k/uL Lymphocytes # (1.0-4.8) k/uL Monocytes # (0-1.0) k/uL Eosinophils # (0-0.7) k/uL Basophils # (0-0.2) k/uL Sodium (137-145) mmol/L Potassium (3.5-5.1) mmol/L Chloride (98-107) mmol/L Carbon Dioxide (22-30) mmol/L Anion Gap mmol/L BUN (9-20) mg/dL Creatinine (0.66-1.25) mg/dL Est GFR (CKD-EPI)AfAm (>60 ml/min/1.73 sqM) Est GFR (CKD-EPI)NonAf (>60 ml/min/1.73 sqM) Glucose (74-99) mg/dL Plasma Lactic Acid [place] 1.3 (0.7-2.0) mmol/L Calcium (8.4-10.2) mg/dL Magnesium (1.6-2.3) mg/dL Total Bilirubin (0.2-1.3) mg/dL AST (17-59) U/L ALT (4-49) U/L Alkaline Phosphatase (38-126) U/L Total Protein (6.3-8.2) g/dL Albumin (3.5-5.0) g/dL Urine Color Urine Appearance (Clear) Urine pH (5.0-8.0) Ur Specific [place] (1.001-1.035) Urine Protein (Negative) Urine Glucose (UA) (Negative) Urine Ketones (Negative) Urine Blood (Negative) Urine Nitrite (Negative) Urine Bilirubin (Negative) Urine Urobilinogen (<2.0) mg/dL Ur Leukocyte Esterase (Negative) Urine RBC (0-5) /hpf Urine WBC (0-5) /hpf Hyaline Casts (0-2) /lpf Acetone, Qual (Negative) Disposition Clinical Impression: Hyperglycemia, Hematemesis, Dehydration, Diabetes Disposition: ADMITTED IP TO THIS [facility] Condition: Stable Is patient prescribed a controlled substance at d/c from ED?: No Decision to Admit Reason: Admit from EC Decision Date: 11/15/20 Decision Time: 19:02
[2020-11-15] MEDS ORDERED: ACETAMINOPHEN TAB 325 MG TAB PO PRN (19:02)
[2020-11-15] MEDS ORDERED: ONDANSETRON 4 MG/2 ML VIAL IVP PRN (19:02)
[2020-11-15] MEDS ORDERED: NALOXONE 0.4 MG/ML 1 ML VIAL IV PRN (19:02)
[2020-11-15 19:13] LABS: Glucose,Whole Blood 382 mg/dL (75-99)
[2020-11-15] MEDS: SODIUM CHLORIDE 0.9% 1,000 ML IV SCH (20:14)
[2020-11-15 22:14] LABS: Glucose,Whole Blood 314 mg/dL (75-99)
[2020-11-15] MEDS: INSULIN ASPART (NovoLOG) 100 UNIT/ML VIAL SQ SCH (22:53)
[2020-11-15] MEDS: INSULN ASP PRT/INSULIN ASPART 100 UNIT/ML 10 ML VIAL SQ SCH (22:53)
[2020-11-16] MEDS: PANTOPRAZOLE 40 MG/10 ML VIAL IVP SCH ×2 (00:58→07:35)
[2020-11-16 06:49] LABS: Basophils % (A) 0 %; Eosinophils % (A) 0 %; HCT 40.5 % (39.0-53.0); HGB 13.3 gm/dL (13.0-17.5); Lymphocytes # (A) 1.8 k/uL (1.0-4.8); Lymphocytes % (A) 16 %; MCH 27.8 pg (25.0-35.0); MCHC 32.8 g/dL (31.0-37.0); MCV 84.9 fL (80.0-100.0); Mean Platelet Volume 8.3; Monocytes # (A) 0.7 k/uL (0-1.0); Monocytes % (A) 6 %; Neutrophils # (A) 8.6 k/uL (1.3-7.7); Neutrophils % (A) 77 %; Platelet Count 192 k/uL (150-450); RBC 4.77 m/uL (4.30-5.90); RDW 12.9 % (11.5-15.5); WBC 11.3 k/uL (3.8-10.6)
[2020-11-16 06:55] LABS: Glucose,Whole Blood 51 mg/dL (75-99)
[2020-11-16] MEDS: SODIUM CHLORIDE 0.9% 1,000 ML IV SCH ×2 (07:01→21:15)
[2020-11-16 07:04] LABS: Glucose,Whole Blood 50 mg/dL (75-99)
[2020-11-16] MEDS ORDERED: DEXTROSE 50% SYRINGE 50 ML IVP ONE (07:04)
[2020-11-16] MEDS: INSULIN ASPART (NovoLOG) 100 UNIT/ML VIAL SQ SCH ×4 (07:10→21:14)
[2020-11-16 07:40] LABS: Glucose,Whole Blood 173 mg/dL (75-99)
[2020-11-16] MEDS: INSULN ASP PRT/INSULIN ASPART 100 UNIT/ML 10 ML VIAL SQ SCH (07:41)
[2020-11-16] MEDS ORDERED: FAMOTIDINE 20 MG/2 ML VIAL IV SCH (09:00)
[2020-11-16 10:26] LABS: Glucose,Whole Blood 88 mg/dL (75-99)
[2020-11-16 10:28] LABS: African American GFR (CKD) 93.5 (60.0-200.0); Anion Gap 9.7 mmol/L (4.00-12.00); BUN/Creat Ratio 30.83 Ratio (12.00-20.00); Carbon Dioxide 29.3 mmol/L (21.6-31.8); Non-African American GFR(CKD) 80.7 (60.0-200.0); Potassium 3.5 mmol/L (3.5-5.5)
[2020-11-16 11:27] LABS: Glucose,Whole Blood 90 mg/dL (75-99)
[2020-11-16] MEDS ORDERED: CALCIUM CARBONATE 500 MG CHEWABLE PO PRN (13:10)
[2020-11-16 16:36] LABS: Glucose,Whole Blood 365 mg/dL (75-99)
[2020-11-16 20:51] LABS: Glucose,Whole Blood 253 mg/dL (75-99)
[2020-11-16] MEDS: FAMOTIDINE 20 MG/2 ML VIAL IV SCH (21:13)
--- NOTE | 2020-11-16 23:23 | P.HPIM ---
History of Present Illness H&P Date: 11/16/20 Patient is a 29-year-old male with a known history of diabetes type 2 insulin- dependent, asthma and history of marijuana use presents to ER with complaints of nausea and unable to tolerate oral diet and elevated blood sugars. Patient states that he was in the retirement recently and was released about a week ago and since then he has been out of insulin for the past 6 days. Patient has been having nausea vomiting with streaks of blood in the vomit. Patient does have history of DKA. Also complaining of abdominal pain. No diarrhea. No complaints of chest pain or shortness breath. No fever no chills. No cough or sputum production. No headache or dizziness or lightheadedness. Laboratory data showed WBC 11.1, hemoglobin 16.1 and platelets 84 Sodium 123, potassium 4.9, chloride 83, bicarb is 30, BUN 52 and creatinine 1.19 Blood sugar is 535 UA showed 1+ ketones and 4+ glucose and is stone positive Review of Systems Constitutional: Patient denies any fever or chills . No generalized weakness or weight loss. Abdomen: Patient does have nausea vomiting and abdominal pain. Cardiovascular: Patient denies any chest pain or short of breath no palpitations. Respiratory: patient denied any cough or sputum production. No shortness of breath Neurologic: Patient denied any numbness or tingling headache. Musculoskeletal: Patient denies any complaints of joint swelling or deformity. Skin: Negative Psychiatric: Negative Endocrine: No heat or cold intolerance. No recent weight gain. Genitourinary: No dysuria or hematuria. All other 14 point ROS negative except the above Past Medical History Past Medical History: Asthma, Diabetes Mellitus, Pneumonia Additional Past Medical History / Comment(s): bronchitis, "constipation-received botox injections to help with that", migraines, concussions History of Any Multi-Drug Resistant Organisms: None Reported Past Surgical History: No Surgical Hx Reported Additional Past Surgical History / Comment(s): tooth extractions Past Anesthesia/Blood Transfusion Reactions: Motion Sickness Additional Past Anesthesia/Blood Transfusion Reaction / Comment(s): mild clausterphobia Past Psychological History: No Psychological Hx Reported Smoking Status: Never smoker Past Alcohol Use History: Rare Past Drug Use History: None Reported, Marijuana - Past Family History Mother Family Medical History: Cancer, Chest Pain / Angina Additional Family Medical History / Comment(s): CERVICAL CANCER Father Family Medical History: Cancer Additional Family Medical History / Comment(s): - LUNG CANCER, WAS HEAVY SMOKER. Medications and Allergies Home Medications Medication Instructions Recorded Confirmed Type Insulin NPH/Reg Insulin 70/30 35 unit SQ BID #1 04/04/17 11/15/20 Rx [humuLIN 70/30 VIAL] INSULIN ASPART (NovoLOG) [NovoLOG See Protocol SQ TID-W/MEALS 11/15/20 11/15/20 History (formulary)] Allergies Allergy/AdvReac Type Severity Reaction Status Date / Time codeine Allergy Swelling Verified 11/15/20 16:00 Physical Exam Vitals: Vital Signs Temp Pulse Pulse Resp BP BP Pulse Ox 11/16/20 07:05 98.4 F 97 17 160/88 99 11/16/20 02:15 98.4 F 92 16 118/72 96 11/15/20 22:12 98.4 F 91 16 143/93 97 11/15/20 21:45 92 16 11/15/20 20:15 98.6 F 104 H 18 121/82 100 11/15/20 15:57 98.4 F 114 H 18 124/85 100 Intake and Output 11/15/20 11/16/20 11/16/20 22:59 06:59 14:59 Other: Voiding Method Toilet Toilet # Voids 1 1 Weight 65.771 kg PHYSICAL EXAMINATION: Patient is lying in the bed comfortably, no acute distress, awake alert and oriented.. HEENT: Normocephalic. Neck is supple. Pupils reactive. Nostrils clear. Oral cavity is moist. Ears reveal no drainage. Neck reveals no JVD, carotid bruits, or thyromegaly. CHEST EXAMINATION: Trachea is central. Symmetrical expansion. Lung garcias clear to auscultation and percussion. CARDIAC: Normal S1, S2 with no gallops. No murmurs ABDOMEN: Soft. Mild epigastric tenderness. Bowel sounds normal. No organomegaly. No abdominal bruits. Extremities: reveal no edema. No clubbing or cyanosis Neurologically awake, alert, oriented x3 with well-coordinated movements. No focal deficits noted Skin: No rash or skin lesions. Psychiatric: Coperative. Nonsuicidal Musculoskeletal: No joint swelling or deformity. Normal range of motion. Results CBC & Chem 7: 11/16/20 06:22 11/16/20 06:22 Labs: Abnormal Lab Results - Last 24 Hours (Table) 11/15/20 11/15/20 11/15/20 Range/Units 16:27 16:27 16:27 WBC 11.1 H (3.8-10.6) k/uL Neutrophils # 9.3 H (1.3-7.7) k/uL Sodium 123 L (137-145) mmol/L Chloride 83 L (98-107) mmol/L BUN 52 H (9-20) mg/dL BUN/Creatinine Ratio (12.00-20.00) Ratio Glucose 535 H* (74-99) mg/dL POC Glucose (mg/dL) (75-99) mg/dL Total Bilirubin 1.9 H (0.2-1.3) mg/dL ALT 61 H (4-49) U/L Total Protein 8.4 H (6.3-8.2) g/dL Urine Protein 1+ H (Negative) Urine Glucose (UA) 4+ H (Negative) Urine Ketones 1+ H (Negative) Urine Blood Small H (Negative) 11/15/20 11/15/20 11/16/20 Range/Units 19:11 22:12 06:22 WBC 11.3 H (3.8-10.6) k/uL Neutrophils # 8.6 H (1.3-7.7) k/uL Sodium (137-145) mmol/L Chloride (98-107) mmol/L BUN (9-20) mg/dL BUN/Creatinine Ratio (12.00-20.00) Ratio Glucose (74-99) mg/dL POC Glucose (mg/dL) 382 H 314 H (75-99) mg/dL Total Bilirubin (0.2-1.3) mg/dL ALT (4-49) U/L Total Protein (6.3-8.2) g/dL Urine Protein (Negative) Urine Glucose (UA) (Negative) Urine Ketones (Negative) Urine Blood (Negative) 11/16/20 11/16/20 11/16/20 Range/Units 06:22 06:51 07:03 WBC (3.8-10.6) k/uL Neutrophils # (1.3-7.7) k/uL Sodium (137-145) mmol/L Chloride (98-107) mmol/L BUN 37.0 H (9-20) mg/dL BUN/Creatinine Ratio 30.83 H (12.00-20.00) Ratio Glucose 43 L* (74-99) mg/dL POC Glucose (mg/dL) 51 L 50 L (75-99) mg/dL Total Bilirubin (0.2-1.3) mg/dL ALT (4-49) U/L Total Protein (6.3-8.2) g/dL Urine Protein (Negative) Urine Glucose (UA) (Negative) Urine Ketones (Negative) Urine Blood (Negative) 11/16/20 Range/Units 07:34 WBC (3.8-10.6) k/uL Neutrophils # (1.3-7.7) k/uL Sodium (137-145) mmol/L Chloride (98-107) mmol/L BUN (9-20) mg/dL BUN/Creatinine Ratio (12.00-20.00) Ratio Glucose (74-99) mg/dL POC Glucose (mg/dL) 173 H (75-99) mg/dL Total Bilirubin (0.2-1.3) mg/dL ALT (4-49) U/L Total Protein (6.3-8.2) g/dL Urine Protein (Negative) Urine Glucose (UA) (Negative) Urine Ketones (Negative) Urine Blood (Negative) Thrombosis Risk Factor Assmnt - DVT/VTE Prophylaxis DVT/VTE Prophylaxis: Pharmacologic Prophylaxis ordered Assessment and Plan Assessment: Acute diabetic ketoacidosis due to lack of insulin. Hyperglycemia with uncontrolled diabetes type 2 Intractable nausea vomiting abdominal pain Previous history of DKA History of marijuana use Asthma not in exacerbation Stable migraine headaches and concussion injury DVT prophylaxis with heparin subcu Plan: Patient was given IV insulin and currently started back on home insulin regimen. IV fluids. Continue with insulin sliding scale and titrate dose. Continue symptomatic management for nausea and vomiting and continue with IV Pepcid twice daily. Monitor H&H and electrolytes and replace potassium. Follow-up closely and further recommendations based on clinical course. Time with Patient: Greater than 30
[2020-11-17 03:58] LABS: Glucose,Whole Blood 342 mg/dL (75-99)
[2020-11-17] MEDS: INSULIN ASPART (NovoLOG) 100 UNIT/ML VIAL SQ SCH ×7 (04:15→20:10)
[2020-11-17] MEDS: SODIUM CHLORIDE 0.9% 1,000 ML IV SCH ×3 (05:05→21:24)
[2020-11-17 07:10] LABS: Basophils # (A) 0.1 k/uL (0-0.2); Basophils % (A) 1 %; Eosinophils # (A) 0.1 k/uL (0-0.7); Eosinophils % (A) 1 %; HCT 35.8 % (39.0-53.0); HGB 12.3 gm/dL (13.0-17.5); Lymphocytes # (A) 2.1 k/uL (1.0-4.8); Lymphocytes % (A) 35 %; MCHC 34.3 g/dL (31.0-37.0); MCV 84.6 fL (80.0-100.0); Mean Platelet Volume 8.6; Monocytes # (A) 0.2 k/uL (0-1.0); Monocytes % (A) 4 %; Neutrophils # (A) 3.4 k/uL (1.3-7.7); Neutrophils % (A) 58 %; Platelet Count 152 k/uL (150-450); RBC 4.24 m/uL (4.30-5.90); RDW 12.3 % (11.5-15.5)
[2020-11-17 07:45] LABS: Glucose,Whole Blood 274 mg/dL (75-99)
[2020-11-17] MEDS: PANTOPRAZOLE 40 MG/10 ML VIAL IVP SCH (08:18)
[2020-11-17] MEDS: FAMOTIDINE 20 MG/2 ML VIAL IV SCH (08:18)
[2020-11-17 08:27] LABS: Glucose,Whole Blood 372 mg/dL (75-99)
[2020-11-17 09:45] LABS: African American GFR (CKD) 103.9 (60.0-200.0); Anion Gap 4.4 mmol/L (4.00-12.00); BUN/Creat Ratio 22.73 Ratio (12.00-20.00); Calcium 8.8 mg/dL (8.7-10.3); Carbon Dioxide 29.6 mmol/L (21.6-31.8); Non-African American GFR(CKD) 89.6 (60.0-200.0); Potassium 3.9 mmol/L (3.5-5.5)
[2020-11-17 12:21] LABS: Glucose,Whole Blood 407 mg/dL (75-99)
[2020-11-17] MEDS ORDERED: INSULIN ASPART (NovoLOG) 100 UNIT/ML VIAL SQ SCH (12:30)
[2020-11-17 16:29] LABS: Glucose,Whole Blood 64 mg/dL (75-99)
[2020-11-17 16:47] LABS: Glucose,Whole Blood 70 mg/dL (75-99)
[2020-11-17 20:06] LABS: Glucose,Whole Blood 347 mg/dL (75-99)
[2020-11-17] MEDS: FAMOTIDINE 20 MG TAB PO SCH (20:12)
[2020-11-17] MEDS ORDERED: INSULIN DETEMIR (LEVEMIR) 100 UNIT/ML SYR SQ SCH ×2 (21:00)
[2020-11-18 01:55] LABS: Glucose,Whole Blood 133 mg/dL (75-99)
[2020-11-18] MEDS: INSULIN ASPART (NovoLOG) 100 UNIT/ML VIAL SQ SCH ×5 (03:13→12:07)
[2020-11-18 06:25] LABS: Basophils # (A) 0.1 k/uL (0-0.2); Basophils % (A) 1 %; Eosinophils # (A) 0.1 k/uL (0-0.7); Eosinophils % (A) 2 %; HCT 36.1 % (39.0-53.0); HGB 12.6 gm/dL (13.0-17.5); Lymphocytes # (A) 2.4 k/uL (1.0-4.8); Lymphocytes % (A) 44 %; MCH 29.2 pg (25.0-35.0); MCHC 34.9 g/dL (31.0-37.0); MCV 83.8 fL (80.0-100.0); Mean Platelet Volume 8.2; Monocytes # (A) 0.3 k/uL (0-1.0); Monocytes % (A) 5 %; Neutrophils # (A) 2.4 k/uL (1.3-7.7); Neutrophils % (A) 46 %; Platelet Count 153 k/uL (150-450); RBC 4.31 m/uL (4.30-5.90); RDW 12.2 % (11.5-15.5); WBC 5.4 k/uL (3.8-10.6)
[2020-11-18] MEDS: SODIUM CHLORIDE 0.9% 1,000 ML IV SCH (07:21)
[2020-11-18] MEDS ORDERED: PANTOPRAZOLE 40 MG TABLET PO SCH (07:30)
[2020-11-18] MEDS: FAMOTIDINE 20 MG TAB PO SCH (07:31)
[2020-11-18 07:37] LABS: Glucose,Whole Blood 59 mg/dL (75-99)
[2020-11-18 07:48] LABS: Glucose,Whole Blood 112 mg/dL (75-99)
[2020-11-18 08:12] VITALS: BP 128/78; PULSE 96; RESP 20; TEMP 98.8
[2020-11-18 09:57] LABS: African American GFR (CKD) 132.4 (60.0-200.0); Anion Gap 6.7 mmol/L (4.00-12.00); BUN/Creat Ratio 24.44 Ratio (12.00-20.00); Calcium 8.8 mg/dL (8.7-10.3); Carbon Dioxide 29.3 mmol/L (21.6-31.8); Non-African American GFR(CKD) 114.2 (60.0-200.0); Potassium 3.5 mmol/L (3.5-5.5)
[2020-11-18 11:38] LABS: Glucose,Whole Blood 240 mg/dL (75-99)
[2020-11-18] MEDS ORDERED: INSULIN DETEMIR (LEVEMIR) 100 UNIT/ML SYR SQ SCH (21:00)
== END 2020-11-18 12:41 | disposition home or self-care (01) | DRG 638 ==
LOC: EC 15:30 → 4SSUR 19:02
PROVIDERS: ADMIT Hospitalist; ATTEND Hospitalist
DX: E11.10 Type 2 diabetes mellitus with ketoacidosis without coma (principal); K92.0 Hematemesis; E86.0 Dehydration; Z79.4 Long term (current) use of insulin; J45.909 Unspecified asthma, uncomplicated; K59.00 Constipation, unspecified; G43.909 Migraine, unspecified, not intractable, without status migrainosus; F40.240 Claustrophobia; Z88.5 Allergy status to narcotic agent; Z87.01 Personal history of pneumonia (recurrent); Z87.820 Personal history of traumatic brain injury; Z80.1 Family history of malignant neoplasm of trachea, bronchus and lung; Z80.8 Family history of malignant neoplasm of other organs or systems
CPT/HCPCS: 36415; 80048; 80053; 81001; 82009; 83605; 83735; 85025; 93005; 96361; 96374; 96375; 99285